=== PATIENT | female | born 1980 | race Caucasian/White ===

== ENCOUNTER 2016-10-27 21:16 | Emergency (ER) | payer BC ==
[2016-10-27 21:34] VITALS: BMI 24.7
--- NOTE | 2016-10-27 22:52 | DR.GENAD ---
HPI - PCP Primary Care Physician: Mohit VENTURA - Complaint/Symptoms Chief Complaint:: LOT OF PRESSURE IN RECTUM, FEELS LIKE AN OBSTRUCTION. PAIN IN RECTUM AND PAIN THAT RADIATES THROUGH GROIN INTO LOWER ABDOMEN. Self Treatment fo Chief Complaint: TUCK PADS, NITROGLYCERIN PASTE, IBUPROFEN FOR PAIN, TRIED SOAKING IN WARM WATER AND EPSOM SALT - Source History Provided: Patient - Mode of Arrival Mode of Arrival: Ambulatory - Timing Onset of Chief Complaint: 10/25/16 PMH - PMH Past Medical History: Yes Past Medical History: Anxiety, Depression, GERD, Headaches Past Medical History Comment: DDD Past Surgical History: Yes Surgical History: , Tonsillectomy - Family History History of Family Medical Conditions: Yes Family Medical History: Diabetes Mellitus, Cancer, [place], Coronary Artery Disease, Hypertension Family Medical History Comment: CVA, SEIZURE, ANUERYSUM, THYROID PROBLEMS - Social History Does patient currently use any type of tobacco product: Yes Have you used tobacco products in the last 12 months: Yes Type of Tobacco Use: Cigarettes How many years tobacco product used: 15 Does any household member use tobacco: No Alcohol Use: Occasionally Do you use any recreational Drugs:: No Lives With: Spouse Lives Where: Home - infectious screening In the last 2 months have you had wt loss of >10#?: NO Have you had fever, night sweats or hemotysis?: No Have you traveled outside the country in the last 6 months?: No Isolation: Standard ROS - Review of Systems Constitutional: No Symptoms Reported Eyes: No Symptoms Reported ENTM: No Symptoms Reported Respiratoy: No Symptoms Reported Cardiovascular: No Symptoms Reported Gastrointestinal/Abdominal: No Symptoms Reported Genitourinary: No Symptoms Reported Neurological: No Symptoms Reported Musculoskeletal: No Symptoms Reported Integumentary: No Symptoms Reported Hematologic/Lymphatic: No Symptoms Reported Endocrine: No Symptoms Reported Psychiatric: No Symptoms Reported All Other Systems: Reviewed and Negative PE - Vital Signs Vitals: Temperature 98.5 F Pulse Rate 109 Respiratory Rate 20 Blood Pressure 140/80 O2 Sat by Pulse Oximetry 96 - General Limitations: No Limitations General Appearance: Alert, In No Apparent Distress - Head Head Exam: Normal Inspection, Atraumatic - Eyes Eye exam: Normal Appearance, PERRL, EOMI - ENT ENT Exam: Normal Exam External Ear Exam: Normal External Inspection TM/Canal Exam: Bilateral Normal Nose Exam: Normal Nose Exam Mouth Exam: Normal Inspection Throat Exam: Normal Inspection - Neck Neck Exam: Normal Inspection - Chest Chest Inspection: Normal Inspection - Respiratory Respiratory Exam: Normal Lung Sounds Bilat Respiratory Exam: Bilateral Clear to Auscultation - Cardiovascular Cardiovascular Exam: Regular Rate, Normal Rhythm - Abdominal Exam Abdominal Exam: Normal Inspection, Normal Bowel Sounds Abdominal Tenderness: negative: RUQ, RLQ, LUQ, LLQ, Epigastrium, Suprapubic, Diffuse, Mild, Moderate, Severe, Other - Extremities Extremities Exam: Normal Inspection, Full ROM - Back Back Exam: Normal Inspection, Full ROM - Neurologic Neurological Exam: Alert, Oriented X3, CN II-XII Intact - Psychiatric Psychiatric Exam: Normal Affect, Normal Mood - Skin Skin Exam: Warm, Dry, Intact - Other Exam Other Exam: Digital exam: tender to insertion of digit, hemocult negative ROR - Labs Reviewed Laboratory: HCG, Qual Negative <10 mIU/mL 10/27/16 23:07 - XRAY XRAY Interpreted by: Radiologist (KUB: no pathology noted) - Diagnosis Discharge Problem: Proctitis - Discharge Plan Condition: Stable - Follow ups/Referrals Follow ups/Referrals: ROMELIA VENTURA [Primary Care Provider] - 3 days - Instructions
[2016-10-27 23:21] LABS: SERUM PREGNANCY TEST, QUAL NEGATIVE <10 mIU/mL
--- NOTE | 2016-10-27 23:47 | RAD ---
EXAM: Abdomen x-ray INDICATION: Abdominal pain COMPARISION: No priors TECHNIQUE: AP view, single view FINDINGS: The bowel loops are nonobstructed. No abnormal mass or calcification is identified. The regional ske leton is intact. IMPRESSION: Normal single view abdominal x-ray examination Reported By:
[2016-10-28] MEDS ORDERED: ROCEPHIN VIAL 500 MG IM ONE (00:16)
[2016-10-28 00:22] LABS: BILIRUBIN,URINE NEGATIVE (NEGATIVE); BLOOD/HEMOGLOBIN,URINE NEGATIVE (NEGATIVE); GLUCOSE, URINE NEGATIVE (NEGATIVE); KETONES,URINE NEGATIVE (NEGATIVE); LEUKOCYTE ESTERASE ,URINE NEGATIVE (NEGATIVE); NITRITES,URINE NEGATIVE (NEGATIVE); PROTEIN,URINE NEGATIVE (NEGATIVE); UROBILINOGEN,URINE NORMAL (NORMAL)
[2016-10-28] MEDS ORDERED: ROCEPHIN VIAL 500 MG ONE (00:22)
[2016-10-28 00:37] LABS: APPEARANCE,URINE CLEAR (CLEAR); BACTERIA,URINE NEGATIVE /HPF (NEGATIVE); COLOR,URINE PALE YELLOW (YELLOW); RBC,URINE 0-3 /HPF (NEGATIVE); SQUAMOUS EPITHELIAL CELL,UR RARE /HPF (NEGATIVE)
[2016-10-28 00:56] VITALS: BP 113/67
== END 2016-10-28 00:55 | disposition home or self-care (01) ==
LOC: ER 21:40
DX: K62.89 Other specified diseases of anus and rectum (principal)
CPT/HCPCS: 36415; 74000; 81001; 82270; 84703; 96372; 99283; J0696

== ENCOUNTER → 2017-07-16 | Outpatient (CLI) | payer BC ==
[2017-07-16 12:26] LABS: BASOPHILS % (AUTO) 0.5 % (0.2-1.0); EOSINOPHILS # (AUTO) 0.1 x10^3/uL (0.0-0.2); EOSINOPHILS % (AUTO) 1.1 % (0.9-2.9); HEMATOCRIT 42.3 % (36.0-47.0); HEMOGLOBIN 14.5 g/dL (12.0-16.0); LYMPHOCYTES # (AUTO) 2.7 X10^3/uL (1.3-2.9); LYMPHOCYTES % (AUTO) 30.1 % (21.0-51.0); MEAN CORPUSCULAR HEMOGLOBIN 31.3 pg (27.0-34.0); MEAN CORPUSCULAR HGB CONC 34.2 g/dL (33.0-35.0); MEAN CORPUSCULAR VOLUME 91.4 fL (80.0-100.0); MEAN PLATELET VOLUME 8.7 fL (7.4-11.0); MONOCYTES # (AUTO) 0.5 x10^3/uL (0.3-0.8); MONOCYTES % (AUTO) 5.5 % (0.0-13.0); NEUTROPHILS # (AUTO) 5.5 x10^3/uL (2.2-4.8); NEUTROPHILS % (AUTO) 62.8 % (42.0-75.0); PLATELET COUNT 266 X10^3/uL (150.0-450.0); RED BLOOD COUNT 4.63 X10^6/uL (3.5-5.4); RED CELL DISTRIBUTION WIDTH 13.3 % (11.6-16.5); WHITE BLOOD COUNT 8.8 X10^3/uL (3.6-10.0)
[2017-07-16 12:33] LABS: BILIRUBIN,URINE NEGATIVE (NEGATIVE); BLOOD/HEMOGLOBIN,URINE NEGATIVE (NEGATIVE); GLUCOSE, URINE NEGATIVE (NEGATIVE); KETONES,URINE NEGATIVE (NEGATIVE); LEUKOCYTE ESTERASE ,URINE NEGATIVE (NEGATIVE); NITRITES,URINE NEGATIVE (NEGATIVE); PROTEIN,URINE NEGATIVE (NEGATIVE); UROBILINOGEN,URINE NORMAL (NORMAL)
[2017-07-16 12:35] LABS: BLOOD UREA NITROGEN 9 mg/dL (7-18); CALCIUM 9.3 mg/dL (8.5-10.1); CARBON DIOXIDE 29.3 mmol/L (21-32); CHLORIDE 103 mmol/L (98-107); CREATININE 0.75 mg/dL (0.55-1.02); SODIUM 140 mmol/L (136-145); eGFR BLACK RACES > 60 (>60); eGFR NON BLACK RACES > 60 (>60)
[2017-07-16 12:47] LABS: APPEARANCE,URINE CLEAR (CLEAR); BACTERIA,URINE NEGATIVE /HPF (NEGATIVE); COLOR,URINE YELLOW (YELLOW); RBC,URINE 0-3 /HPF (NEGATIVE); SQUAMOUS EPITHELIAL CELL,UR FEW /HPF (NEGATIVE)
[2017-07-16 13:06] LABS: SERUM PREGNANCY TEST, QUAL NEGATIVE <10 mIU/mL
== END ==
LOC: LAB 11:47
PROVIDERS: ATTEND Specialist
DX: Z01.818 Encounter for other preprocedural examination (principal); D25.9 Leiomyoma of uterus, unspecified; R10.2 Pelvic and perineal pain; N94.6 Dysmenorrhea, unspecified; N92.1 Excessive and frequent menstruation with irregular cycle
CPT/HCPCS: 36415; 80048; 81001; 84703; 85025; 85610; 85730; 86850; 86900; 86901; 87086; 87088; 87186

== ENCOUNTER 2017-07-19 06:20 | Inpatient (IN) | payer BC ==
[2017-07-19] MEDS ORDERED: D5 1/2 NS 1000 ML 1,000 ML IV ONE ×2 (06:29→09:28)
[2017-07-19] MEDS ORDERED: ANCEF VIAL 1 GM ONE (06:29)
[2017-07-19] MEDS ORDERED: ANCEF VIAL 1 GM 1 GM in NS 50 ML IV + SPIKE MINIBAG* 50 ML IV PRN (06:35)
[2017-07-19] MEDS ORDERED: D5 1/2 NS 1000 ML 1,000 ML IV SCH (06:35)
[2017-07-19 06:55] VITALS: BMI 25.3
[2017-07-19] MEDS ORDERED: DILAUDID INJ ONE ×2 (07:04→09:11)
[2017-07-19] MEDS ORDERED: FENTANYL INJ 250 mcg ONE (07:04)
[2017-07-19] MEDS ORDERED: NS IRRIGATION 1000 ML 1,000 ML IR ONE (07:20)
[2017-07-19] MEDS ORDERED: REGLAN INJ 10 MG VIAL IVP PRN (09:14)
[2017-07-19] MEDS ORDERED: ZOFRAN INJ 4 MG VIAL IVP PRN ×2 (09:14→10:43)
[2017-07-19] MEDS ORDERED: PHENERGAN INJ 25 MG IVP PRN (09:14)
[2017-07-19] MEDS ORDERED: BENADRYL INJ 50 MG VIAL IVP PRN ×2 (09:14→10:43)
[2017-07-19] MEDS: DILAUDID INJ IVP PRN ×2 (09:15→09:20)
[2017-07-19] MEDS ORDERED: TORADOL 30 MG VIAL ONE (10:34)
[2017-07-19] MEDS ORDERED: ULTANE GAS IN ONE (10:34)
[2017-07-19] MEDS ORDERED: ZOFRAN INJ 4 MG VIAL ONE (10:34)
[2017-07-19] MEDS ORDERED: ROBINUL ONE (10:34)
[2017-07-19] MEDS ORDERED: VERSED ONE (10:34)
[2017-07-19] MEDS ORDERED: NORCURON INJ 10 MG VIAL ONE (10:34)
[2017-07-19] MEDS ORDERED: QUELICIN (OR ANECTINE) ONE (10:34)
[2017-07-19] MEDS ORDERED: DIPRIVAN VIAL ONE (10:34)
[2017-07-19] MEDS ORDERED: NEOSTIGMINE INJ ONE (10:34)
[2017-07-19] MEDS: D5 1/2 NS 1000 ML 1,000 ML IV SCH ×4 (11:04→18:55)
[2017-07-19] MEDS: MORPHINE SULFATE PCA 30 MG IVP PRN (11:20)
[2017-07-19] MEDS: ANCEF VIAL 1 GM 1 GM in NS 50 ML IV + SPIKE MINIBAG* 50 ML IV SCH ×2 (15:11→21:16)
[2017-07-19] MEDS: TORADOL 30 MG VIAL IVP PRN (20:47)
[2017-07-20] MEDS: MORPHINE SULFATE PCA 30 MG IVP PRN (02:00)
[2017-07-20] MEDS: D5 1/2 NS 1000 ML 1,000 ML IV SCH (03:06)
[2017-07-20 05:13] LABS: BASOPHILS % (AUTO) 0.3 % (0.2-1.0); EOSINOPHILS # (AUTO) 0.1 x10^3/uL (0.0-0.2); HEMATOCRIT 35.8 % (36.0-47.0); HEMOGLOBIN 12.3 g/dL (12.0-16.0); LYMPHOCYTES # (AUTO) 2.9 X10^3/uL (1.3-2.9); LYMPHOCYTES % (AUTO) 26.7 % (21.0-51.0); MEAN CORPUSCULAR HEMOGLOBIN 31.7 pg (27.0-34.0); MEAN CORPUSCULAR HGB CONC 34.4 g/dL (33.0-35.0); MEAN CORPUSCULAR VOLUME 92.2 fL (80.0-100.0); MONOCYTES # (AUTO) 0.6 x10^3/uL (0.3-0.8); MONOCYTES % (AUTO) 5.8 % (0.0-13.0); NEUTROPHILS # (AUTO) 7.1 x10^3/uL (2.2-4.8); NEUTROPHILS % (AUTO) 66.2 % (42.0-75.0); PLATELET COUNT 222 X10^3/uL (150.0-450.0); RED BLOOD COUNT 3.88 X10^6/uL (3.5-5.4); RED CELL DISTRIBUTION WIDTH 13.2 % (11.6-16.5); WHITE BLOOD COUNT 10.7 X10^3/uL (3.6-10.0)
[2017-07-20 05:14] LABS: BLOOD UREA NITROGEN 4 mg/dL (7-18); CALCIUM 7.7 mg/dL (8.5-10.1); CARBON DIOXIDE 28.8 mmol/L (21-32); CHLORIDE 97 mmol/L (98-107); COR NA(FOR HYPERGLY) 126 mmol/L (136-145); CREATININE 0.59 mg/dL (0.55-1.02); SODIUM 126 mmol/L (136-145); eGFR BLACK RACES > 60 (>60); eGFR NON BLACK RACES > 60 (>60)
[2017-07-20] MEDS: TORADOL 30 MG VIAL IVP PRN (05:15)
[2017-07-20] MEDS: ANCEF VIAL 1 GM 1 GM in NS 50 ML IV + SPIKE MINIBAG* 50 ML IV SCH (05:15)
[2017-07-20] MEDS ORDERED: MOTRIN TAB 800 MG PO PRN (06:16)
[2017-07-20] MEDS: PROTONIX TAB 40 MG PO SCH ×2 (08:46→16:16)
[2017-07-20] MEDS: CIPRO TAB 500 MG PO SCH ×3 (08:46→21:29)
[2017-07-20] MEDS: COLACE CAP 100 MG PO SCH ×2 (08:47→21:29)
[2017-07-20] MEDS: EFFEXOR XR 75 MG CAP PO SCH (08:47)
[2017-07-20] MEDS: BACTROBAN OINT TOP SCH ×2 (13:39→21:30)
[2017-07-20] MEDS: PERCOCET TAB 5/325 MG PO PRN ×3 (13:40→23:24)
[2017-07-20] MEDS: SINGULAIR TAB 10 MG PO SCH ×2 (16:16→21:29)
[2017-07-20] MEDS ORDERED: CATAPRES TAB 0.1 MG PO SCH (21:00)
[2017-07-21] MEDS: PERCOCET TAB 5/325 MG PO PRN ×2 (03:39→08:38)
[2017-07-21] MEDS: BACTROBAN OINT TOP SCH (05:55)
[2017-07-21] MEDS: EFFEXOR XR 75 MG CAP PO SCH (07:00)
[2017-07-21 08:03] VITALS: BP 101/57
[2017-07-21] MEDS: COLACE CAP 100 MG PO SCH (08:38)
[2017-07-21] MEDS: PROTONIX TAB 40 MG PO SCH (08:38)
[2017-07-21] MEDS: CIPRO TAB 500 MG PO SCH (08:38)
== END 2017-07-21 10:00 | disposition home or self-care (01) | DRG 743 ==
LOC: MED/SURG 06:20
PROVIDERS: ADMIT Specialist; ATTEND Specialist
PROC: 0UTC0ZZ Resection of Cervix, Open Approach (ICD-10-PCS; 2017-07-19)
PROC: 0UT90ZZ Resection of Uterus, Open Approach (ICD-10-PCS; principal; 2017-07-19 07:30)
DX: N92.0 Excessive and frequent menstruation with regular cycle (principal); D25.2 Subserosal leiomyoma of uterus; R10.2 Pelvic and perineal pain; N94.5 Secondary dysmenorrhea
CPT/HCPCS: 36415; 80048; 85025; A4216; A4222; J0330; J0690; J1170; J1885; J2250; J2271; J2405; J2710; J3010; J3490; J7042

== ENCOUNTER 2017-08-21 18:05 | Emergency (ER) | payer BC ==
[2017-08-21 18:10] VITALS: BMI 26.3
--- NOTE | 2017-08-21 18:55 | ED.ABDFE ---
HPI - Time seen Time seen: 18:47 - PCP Primary Care Physician: VIVIANA - Complaint Chief Complaint Doctors Comments: History as stated. Chief Complaint:: PT. C/O EPIGASTRIC PAIN THAT RADIATES TO THE RIGHT UPPER QUADRANT AND NAUSEA WHICH BEGAN ON SUNDAY. PT. STATES SHE HAS HAD 2 BOWEL MOVEMENTS TODAY WHICH WERE SOFT IN NATURE AND TARRY. PT. STATES HER STOOL HAS A FOUL ODOR TO IT. - Source History Provided: Patient - Mode of arrival Mode of Arrival: Ambulatory - Timing Onset of Chief Complaint: 08/17/17 PMH - PMH Past Medical History: Yes Past Medical History: Anxiety, Depression, GERD, Headaches Past Surgical History: Yes Surgical History: , Hysterectomy, Tonsillectomy - Family History History of Family Medical Conditions: Yes Family Medical History: Diabetes Mellitus, Cancer, [place], Hypertension - Social History Does patient currently use any type of tobacco product: Yes Have you used tobacco products in the last 12 months: Yes Type of Tobacco Use: Cigarettes Does any household member use tobacco: No Alcohol Use: None Do you use any recreational Drugs:: No Lives With: Spouse Lives Where: Home - infectious screening In the last 2 months have you had wt loss of >10#?: NO Have you had fever, night sweats or hemotysis?: No Have you traveled outside the country in the last 6 months?: No Isolation: Standard ROS - Review of Systems Eyes: No Symptoms Reported ENTM: No Symptoms Reported Respiratoy: No Symptoms Reported Cardiovascular: No Symptoms Reported Gastrointestinal/Abdominal: No Symptoms Reported Genitourinary: No Symptoms Reported Neurological: No Symptoms Reported Musculoskeletal: No Symptoms Reported Integumentary: No Symptoms Reported Hematologic/Lymphatic: No Symptoms Reported Endocrine: No Symptoms Reported Psychiatric: No Symptoms Reported All Other Systems: Reviewed and Negative PE - Vital Signs Vitals: Temperature 98.7 F Pulse Rate [Left] 99 Pulse Rate 91 Respiratory Rate 16 Blood Pressure [Left Arm] 128/74 Blood Pressure [Right Arm] 114/69 Blood Pressure 141/82 O2 Sat by Pulse Oximetry 96 - General Limitations: No Limitations General Appearance: Alert - Head Head Exam: Normal Inspection, Atraumatic - Eyes Eye exam: Normal Appearance, PERRL, EOMI - ENT ENT Exam: Normal Exam - Neck Neck Exam: Normal Inspection, Full ROM - Chest Chest Inspection: Normal Inspection - Respiratory Respiratory Exam: Normal Lung Sounds Bilat Respiratory Exam: Bilateral Clear to Auscultation - Cardiovascular Cardiovascular Exam: Regular Rate, Normal Rhythm - Abdominal Exam Abdominal Exam: Normal Inspection, Normal Bowel Sounds Abdominal Tenderness: RUQ, RLQ, LUQ, LLQ, Epigastrium, Suprapubic, Diffuse, Mild , Moderate, Severe, Other - Rectal Rectal Exam: Deferred - Back Back Exam: Normal Inspection - Extremeties Extremities Exam: Normal Inspection - External Exam: Female: Deferred : Speculum Exam (Female): Deferred : Bimanual Exam (female): Deferred - Neurologic Neurological Exam: Alert, Oriented X3, CN II-XII Intact - Psychiatric Psychiatric Exam: Normal Affect, Normal Mood - Skin Skin Exam: Warm, Dry, Intact Course - Reevaluation 1st: Unchanged - Education/Counseling Educated On: Diagnosis, Needs for Follow Up ROR - Labs Reviewed Result Diagrams: 08/21/17 19:06 08/21/17 19:06 Laboratory: WBC 11.4 X10^3/uL (3.6-10.0) H 08/21/17 19:06 RBC 4.46 X10^6/uL (3.5-5.4) 08/21/17 19:06 Hgb 13.9 g/dL (12.0-16.0) 08/21/17 19:06 Hct 40.8 % (36.0-47.0) 08/21/17 19:06 MCV 91.4 fL (80.0-100.0) 08/21/17 19:06 MCH 31.1 pg (27.0-34.0) 08/21/17 19:06 MCHC 34.0 g/dL (33.0-35.0) 08/21/17 19:06 RDW 13.1 % (11.6-16.5) 08/21/17 19:06 Plt Count 283 X10^3/uL (150.0-450.0) 08/21/17 19:06 MPV 8.7 fL (7.4-11.0) 08/21/17 19:06 Neut % 57.9 % (42.0-75.0) 08/21/17 19:06 Lymph % 34.1 % (21.0-51.0) 08/21/17 19:06 Ray % 5.9 % (0.0-13.0) 08/21/17 19:06 Eos % 1.3 % (0.9-2.9) 08/21/17 19:06 Baso % 0.8 % (0.2-1.0) 08/21/17 19:06 Neut # 6.6 x10^3/uL (2.2-4.8) H 08/21/17 19:06 Lymph # 3.9 X10^3/uL (1.3-2.9) H 08/21/17 19:06 Ray # 0.7 x10^3/uL (0.3-0.8) 08/21/17 19:06 Eos # 0.1 x10^3/uL (0.0-0.2) 08/21/17 19:06 Baso # 0.1 X10^3/uL (0.0-0.1) 08/21/17 19:06 Absolute Nucleated RBC 0.0 /100WBC 08/21/17 19:06 Sodium 142 mmol/L (136-145) 08/21/17 19:06 Corrected Sodium TNP 08/21/17 19:06 Potassium 3.5 mmol/L (3.5-5.1) 08/21/17 19:06 Chloride 105 mmol/L (98-107) 08/21/17 19:06 Carbon Dioxide 25.8 mmol/L (21-32) 08/21/17 19:06 BUN 8 mg/dL (7-18) 08/21/17 19:06 Creatinine 0.68 mg/dL (0.55-1.02) 08/21/17 19:06 Est GFR (MDRD) Af Amer > 60 (>60) 08/21/17 19:06 Est GFR (MDRD) Non-Af > 60 (>60) 08/21/17 19:06 Glucose 95 mg/dL (65-99) 08/21/17 19:06 Calcium 9.0 mg/dL (8.5-10.1) 08/21/17 19:06 Corrected Calcium TNP 08/21/17 19:06 Total Bilirubin 0.30 mg/dL (0.2-1.0) 08/21/17 19:06 AST 12 Units/L (15-37) L 08/21/17 19:06 ALT 15 Units/L (12-78) 08/21/17 19:06 Alkaline Phosphatase 76 Units/L (46-116) 08/21/17 19:06 C-Reactive Protein 3.10 mg/L (0-3.0) H 08/21/17 19:06 Total Protein 7.4 g/dL (6.4-8.2) 08/21/17 19:06 Albumin 4.2 g/dL (3.4-5.0) 08/21/17 19:06 Globulin 3.2 g/dL (2.5-4.5) 08/21/17 19:06 Albumin/Globulin Ratio 1.3 Ratio (1.1-2.1) 08/21/17 19:06 Specimen Type Clean catch urine 08/21/17 19:00 Urine Color Yellow (YELLOW) 08/21/17 19:00 Urine Appearance Clear (CLEAR) 08/21/17 19:00 Urine pH 5.0 (5.0 - 8.0) 08/21/17 19:00 Ur Specific [place] 1.020 (1.000-1.030) 08/21/17 19:00 Urine Protein Negative (NEGATIVE) 08/21/17 19:00 Urine Glucose (UA) Negative (NEGATIVE) 08/21/17 19:00 Urine Ketones 2+ (NEGATIVE) 08/21/17 19:00 Urine Occult Blood 1+ (NEGATIVE) 08/21/17 19:00 Urine Nitrite Negative (NEGATIVE) 08/21/17 19:00 Urine Bilirubin Negative (NEGATIVE) 08/21/17 19:00 Urine Urobilinogen Normal (NORMAL) 08/21/17 19:00 Ur Leukocyte Esterase Negative (NEGATIVE) 08/21/17 19:00 Urine RBC 1-2 /HPF (NEGATIVE) 08/21/17 19:00 Urine WBC None seen /HPF (NEGATIVE) 08/21/17 19:00 Ur Squamous Epith Cells Few /HPF (NEGATIVE) 08/21/17 19:00 Urine Bacteria Trace /HPF (NEGATIVE) 08/21/17 19:00 Ur Culture Indicated? No/not indicated 08/21/17 19:00 - XRAY XRAY Interpreted by: Radiologist (CT abd/pel:Trace amount of fluid in the pelvis otherwise negative noncontrast exam) - Diagnosis Discharge Problem: Abdominal pain Qualifiers: Abdominal location: lower abdomen, unspecified Qualified Code(s): R10.30 - Lower abdominal pain, unspecified - Discharge Plan Condition: Stable - Follow ups/Referrals Follow ups/Referrals: RAY MICHELLE [Primary Care Provider] - 3 days - Instructions
[2017-08-21] MEDS ORDERED: NS 1000 ML 1,000 ML IV SCH (19:00)
[2017-08-21 19:14] LABS: BASOPHILS # (AUTO) 0.1 X10^3/uL (0.0-0.1); BASOPHILS % (AUTO) 0.8 % (0.2-1.0); EOSINOPHILS # (AUTO) 0.1 x10^3/uL (0.0-0.2); EOSINOPHILS % (AUTO) 1.3 % (0.9-2.9); HEMATOCRIT 40.8 % (36.0-47.0); HEMOGLOBIN 13.9 g/dL (12.0-16.0); LYMPHOCYTES # (AUTO) 3.9 X10^3/uL (1.3-2.9); LYMPHOCYTES % (AUTO) 34.1 % (21.0-51.0); MEAN CORPUSCULAR HEMOGLOBIN 31.1 pg (27.0-34.0); MEAN CORPUSCULAR VOLUME 91.4 fL (80.0-100.0); MEAN PLATELET VOLUME 8.7 fL (7.4-11.0); MONOCYTES # (AUTO) 0.7 x10^3/uL (0.3-0.8); MONOCYTES % (AUTO) 5.9 % (0.0-13.0); NEUTROPHILS # (AUTO) 6.6 x10^3/uL (2.2-4.8); NEUTROPHILS % (AUTO) 57.9 % (42.0-75.0); PLATELET COUNT 283 X10^3/uL (150.0-450.0); RED BLOOD COUNT 4.46 X10^6/uL (3.5-5.4); RED CELL DISTRIBUTION WIDTH 13.1 % (11.6-16.5); WHITE BLOOD COUNT 11.4 X10^3/uL (3.6-10.0)
[2017-08-21 19:15] LABS: BILIRUBIN,URINE NEGATIVE (NEGATIVE); BLOOD/HEMOGLOBIN,URINE 1+ (NEGATIVE); GLUCOSE, URINE NEGATIVE (NEGATIVE); KETONES,URINE 2+ (NEGATIVE); LEUKOCYTE ESTERASE ,URINE NEGATIVE (NEGATIVE); NITRITES,URINE NEGATIVE (NEGATIVE); PROTEIN,URINE NEGATIVE (NEGATIVE); UROBILINOGEN,URINE NORMAL (NORMAL)
[2017-08-21 19:23] LABS: APPEARANCE,URINE CLEAR (CLEAR); BACTERIA,URINE TRACE /HPF (NEGATIVE); COLOR,URINE YELLOW (YELLOW); SQUAMOUS EPITHELIAL CELL,UR FEW /HPF (NEGATIVE)
[2017-08-21 19:26] LABS: ALANINE AMINOTRANSFERASE 15 Units/L (12-78); ALBUMIN 4.2 g/dL (3.4-5.0); ALKALINE PHOSPHATASE 76 Units/L (46-116); ASPARTATE AMINO TRANSFERASE 12 Units/L (15-37); BLOOD UREA NITROGEN 8 mg/dL (7-18); CARBON DIOXIDE 25.8 mmol/L (21-32); CHLORIDE 105 mmol/L (98-107); CREATININE 0.68 mg/dL (0.55-1.02); SODIUM 142 mmol/L (136-145); TOTAL PROTEIN 7.4 g/dL (6.4-8.2); eGFR BLACK RACES > 60 (>60); eGFR NON BLACK RACES > 60 (>60)
--- NOTE | 2017-08-21 20:56 | CT ---
HISTORY: Epigastric pain radiating to right upper quadrant, nausea Study: CT abdomen and pelvis without contrast Comparison: None Technique: Multiple axial images of the abdomen and pelvis were obtained without IV contrast. Dose reduction t echniques including Automated Exposure Control (AEC) and adjustment of mA and kV were utilized. Findings: Please note evaluation is limited without use of IV contrast. The visualized lung bases are clear. The liver, spleen, pancreas, kidneys, and adrenal glands are un remarkable in their unenhanced CT appearance. The gallbladder is normal. No renal calculi or obstruct jatin uropathy identified. No free intraperitoneal air. No evidence of intestinal obstruction or inflammation. The appendix is n ormal. Trace amount of simple fluid is seen in the pelvis. There are bilateral pars defects at L5 with associated spondylolisthesis. Limited evaluation of vascu lar structures due to lack of contrast. No pathologically enlarged lymph nodes are identified. The ut erus is removed. Normal urinary bladder. IMPRESSION: 1. Trace amount of fluid in the pelvis, otherwise negative noncontrast exam. Reported By:
[2017-08-21] MEDS ORDERED: NS 1000 ML 1,000 ML ONE (21:05)
[2017-08-21 22:05] VITALS: BP 138/72
== END 2017-08-21 22:05 | disposition home or self-care (01) ==
LOC: ER 18:12
DX: R10.31 Right lower quadrant pain (principal)
CPT/HCPCS: 36415; 74176; 80053; 81001; 85025; 86140; 86677; 96365; 96367; 99283; A4222